=== PATIENT | female | born 1970 | race Caucasian/White ===

== ENCOUNTER → 2018-02-09 | Outpatient (CLI) | payer BC, OTHER ==
[~2018-02-09] MED LIST: AUG875 PO; FIO; MELO-150; OME20PT PO
--- NOTE | 2018-02-10 09:57 | RADIOLOGY IMAGING REPORT ---
FACILITY: [facility] - [place] PATIENT NAME: MONICA ALDRIDGE : [id number] MR: [id number] V: [id number] EXAM DATE: ORDERING PHYSICIAN: GABRIEL DAWKINS TECHNOLOGIST: Sandra Callaway PROCEDURE:BILATERAL DIGITAL SCREENING MAMMOGRAM WITH CAD ASSISTED INTERPRETATION & 3D TOMOSYNTHESIS COMPARISON:Prior mammograms 10/22/16, 07/24/15, 12/20/14, 12/05/13, 01/13/13, 03/03/11. INDICATIONS:screening FINDINGS: The breasts are almost entirely fatty. The parenchymal pattern has remained stable allowing for difference in mammographic technique & patient positioning. DIAGNOSTIC CATEGORY 1--NEGATIVE. RECOMMENDATIONS: ROUTINE MAMMOGRAM AND CLINICAL EVALUATION. IMPRESSION: BIRADS 1: Negative. No significant abnormality is seen. Dictated by: Nano Spicer M.D. on 02/09/2018 at 16:07 Transcribed by: VICTORIANO on 02/10/2018 at 8:01 Approved by: Nano Spicer M.D. on 02/10/2018 at 9:56 [facility]
== END ==
LOC: MAMO 00:45
PROVIDERS: ATTEND Physician Assistant
DX: Z12.31 Encounter for screening mammogram for malignant neoplasm of breast (principal)
CPT/HCPCS: 77063; 77067

== ENCOUNTER → 2018-10-10 | Outpatient (CLI) | payer OTHER ==
[~2018-10-10] MED LIST changes: +BUTA1TAB14 PO; +CHOL400C10 PO; +CYCL10TA29 PO; +DIPH0.5S2 IM; +FLUT16SP19 NS; +MULT1TAB64 PO; +SUMA50TA34 PO
--- NOTE | 2018-10-10 16:55 | RADIOLOGY IMAGING REPORT ---
FACILITY: [facility] - [place] PATIENT NAME: Amber Bobo : 1970 MR: [id number] V: [id number] EXAM DATE: [id number] ORDERING PHYSICIAN: ROSI MENDEZ TECHNOLOGIST: Location: [facility] Patient: Amber Bobo : 1970 Visit/Account:[id number] Date of Sevice: 10/10/2018 THYROID HISTORY: thyromegaly COMPARISON: December 17, 2015 FINDINGS: SIZE: Enlarged Right lobe: 6.4 x 2.6 x 3 cm Left lobe: 6 x 1.4 x 2.2 cm Isthmus: 4 mm PARENCHYMA: Diffusely heterogeneous NODULES: Right lobe: * In the mid right lobe there is a 2.7 cm well-circumscribed isoechoic nodule. Also on the mid lobe is a 2 cm well-circumscribed isoechoic nodule. In the inferior right lobe there is a heterogeneous complex nodule measuring 2.3 cm in diameter. Left lobe: * In the medial mid left lobe there is a 1.9 cm complex partially cystic nodule. In the inferior le ft lobe there is a 1.2 cm well-circumscribed well-circumscribed hypoechoic nodule. In the inferior l eft lobe there is an additional 7 mm well-circumscribed echogenic nodule Isthmus: * There is a complex nodule in the isthmus measuring 1.8 cm in diameter VASCULARITY: Increased ADDITIONAL FINDINGS: None. IMPRESSION: There multiple bilateral thyroid nodules. The nodules on the right appear similar to the prior study . There are two nodules in the left lobe one measuring 1.9 cm in diameter and one measuring 1.2 cm i n diameter that were not apparent on the prior ultrasound therefore ultrasound-guided FNA biopsy of t hese nodules recommended REFERENCE: 2015 [place] [employer] Management Guidelines for Adult Patients with Thyroid Nodules and D ifferentiated Thyroid Cancer: The [place] [employer] Guidelines Task Force on Thyroid Nodul es and Differentiated Thyroid Cancer. SONOGRAPHIC PATTERNS: * Benign: Purely cystic nodules (no solid component); estimated risk of malignancy <1 percent; no bi opsy recommended. * Very Low Suspicion: Spongiform or partially cystic nodules without any of the sonographic features described in low, intermediate, or high suspicion patterns; estimated risk of malignancy <3 percent; consider FNA at > 2 cm (Observation without FNA is also a reasonable option). * Low Suspicion: Isoechoic or hyperechoic solid nodule, or partially cystic nodule with eccentric so lid areas, without microcalcification, irregular margin or ETE (extra-thyroidal extension), or taller than wide shape; estimated risk of malignancy 5-10 percent; recommend FNA at >1.5 cm. * Intermediate Suspicion: Hypoechoic solid nodule with smooth margins without microcalcifications, E TE (extra-thyroidal extension), or taller than wide shape; estimated risk of malignancy 10-20 percent ; recommend FNA at > 1 cm. * High Suspicion: Solid hypoechoic nodule or solid hypoechoic component of a partially cystic nodule with one or more of the following features: irregular margins (infiltrative, microlobulated), microc alcifications, taller than wide shape, rim calcifications with small extrusive soft tissue component, evidence of ETE (extra-thyroidal extension); estimated risk of malignancy >70-90 percent; recommend FNA at > 1 cm. NOTES: * Although a sonographically suspicious subcentimeter thyroid nodule without evidence of extrathyroi emilia extension or sonographically suspicious lymph nodes may be observed with close sonographic follow -up rather than pursuing immediate FNA, patient age and preference may modify decision-making. A > 50% interval increase in nodule volume and/or development of new suspicious sonographic features are felt to be a valid reasons for potential re-aspiration of a nodule previously shown to have benig n FNA cytology. Report Dictated By: Nano Spicer MD at 10/10/2018 4:36 PM Report E-Signed By: Nano Spicer MD at 10/10/2018 4:47 PM WSN:[id number]
== END ==
LOC: US 00:50
PROVIDERS: ATTEND Obstetrics & Gynecology
DX: E04.2 Nontoxic multinodular goiter (principal)
CPT/HCPCS: 76536

== ENCOUNTER → 2018-10-12 | Outpatient (CLI) | payer OTHER ==
[2018-10-12 08:55] LABS: LDL CHOLESTEROL 86 mg/dl
== END ==
LOC: LAB 07:43
PROVIDERS: ATTEND Obstetrics & Gynecology
DX: Z00.00 Encounter for general adult medical examination without abnormal findings (principal); E01.0 Iodine-deficiency related diffuse (endemic) goiter
CPT/HCPCS: 36415; 82040; 82247; 82310; 82374; 82435; 82465; 82565; 82947; 83718; 84075; 84132; 84155; 84295; 84439; 84443; 84450; 84460; 84478; 84520; 85027